=== PATIENT | female | born 1985 | race Hispanic/Latino ===

== ENCOUNTER 2022-06-11 13:04 | Day surgery (SDC) | payer OTHER ==
[~2022-06-11] VITALS: Ht 160 cm; Wt 86.3 kg
--- NOTE | ~2022-06-11 | OR ---
[facility] [address], [place] [address] Draft DATE OF OPERATION: 06/11/2022 SURGEON: Cata Douglass, PROCEDURE: Suction dilatation and curettage. BLOOD BANK ASSISTANT: None. ANESTHESIA: General. COMPLICATIONS: None. BLOOD LOSS: 25 mL. FINDINGS: A 6-week uterus. Cervical os closed. INDICATIONS: The patient is a 36-year-old G1, P0 female, who presented today for a second opinion regarding viability of her . Initial ultrasound was performed at [facility] on 06/04/2022, which showed an intrauterine at 6 weeks 1 day by crown-rump length with an irregular shaped gestational sac and yolk sac and no cardiac tones. Ultrasound today confirmed similar findings with a crown-rump length measuring 6 weeks 2 days, absent cardiac activity, and again misshapen gestational sac and yolk sac. The patient had not been bleeding, missed miscarriage was discussed as well as management options including expectant medical and surgical management. The patient strongly desired surgical management to be performed today if possible. Rh type was confirmed to be positive. Consents were signed. The patient was taken to day surgery. PROCEDURE IN DETAIL: The patient was given doxycycline 200 mg p.o. prior to procedure and was taken back to the operating room, where she was placed under general anesthesia. She was positioned in the dorsal lithotomy and prepped and draped in normal sterile fashion. Weighted speculum was placed in the vagina. Cervix was grasped with an Allis clamp in the 12 o'clock position. The cervix dilated with some difficulty at internal os sequentially PATIENT NAME: NEENA DENNIS OPERATIVE REPORT DATE OF : 87 REPORT #: [id number] PHYSICIAN: CATA DOUGLASS DO PCP: CATA DOUGLASS DO REPORT IS CONFIDENTIAL AND NOT TO BE RELEASED WITHOUT AUTHORIZATION [facility] [address], [place] [address] Draft with Hegar dilators up to 8 mm. A 7 mm rigid curved suction curette was introduced, adequate suction was confirmed, and uterus was sequentially suction curettaged with a total of 4 passes, then gently manually circumferentially curettaged, followed by a final pass with suction curette. Products of conception were sent to pathology. Bimanual massage was performed and scant bleeding was noted following procedure. All sponge and instrument counts were correct. The patient was taken to recovery room in stable and satisfactory condition. Cata Douglass DO EMZ/MODL /[id number] Copies: ~ PATIENT NAME: NEENA DENNIS OPERATIVE REPORT DATE OF : [birth year] REPORT #: [id number] PHYSICIAN: CATA DOUGLASS DO PCP: CATA DOUGLASS DO REPORT IS CONFIDENTIAL AND NOT TO BE RELEASED WITHOUT AUTHORIZATION
[2022-06-11] MEDS ORDERED: PRENATAL TABLE1 EAC3 PO (13:28)
--- NOTE | 2022-06-11 15:15 | NUR ---
PT BACK TO DAYSURGERY AWAKE AND ALERT ASKING QUESTIONS ABOUT PROCEDURE, QUESTIONS ANSWERED TO PT SATISFACTION. PTS MOM AT BEDSIDE. PT TAKING OF WATER AND EATING CRACKERS TOLERATES WELL.
--- NOTE | 2022-06-11 16:19 | NUR ---
1530 PT ATE CHICKEN NOODLE SOUP COMPLAINS OF FEELING NAUSEOUS VOMITED ABOUT 100ML. REPORTS SHE FELT BETTER AFTER VOMITING. DECLINES NAUSEA MEDS. SHE DENIES PAIN. ROX PAD CLEAN AND DRY
--- NOTE | 2022-06-11 16:39 | NUR ---
PT AMBULATED TO BATHROOM, SCANT AMOUT OF BLEEDING ON ROX PAD, SHE WAS ABLE TO VOID 200ML OF CLEAR YELLOW URINE. PT DENIES PAIN SHE REPORTS NAUSEA IS BETTER AFTER VOMITING.
== END 2022-06-11 17:15 | disposition home or self-care (01) ==
LOC: OPV-DS 13:04 → DS 13:04 → OPV-DS 17:15
PROVIDERS: ATTEND Obstetrics & Gynecology
PROC: 10D17Z9 Manual Extraction of Products of Conception, Retained, Via Natural or Artificial Opening (ICD-10-PCS; principal; 2022-06-11 13:30)
DX: O02.1 Missed abortion (principal); Z67.40 Type O blood, Rh positive
CPT/HCPCS: 36415; 85027; 86850; 86900; 86901; J0131; J1100; J1885; J2001; J2405; J2704; J3010